=== PATIENT | female | born 2000 | race Caucasian/White ===

== ENCOUNTER 2022-03-05 01:10 | Outpatient (CLI) | payer BC, SELFPAY ==
[2022-03-05 12:13] LABS: Source Nasal/Nares
[2022-03-05 15:13] LABS: COVID-19 PCR Negative (Negative)
== END 2022-03-05 01:11 | disposition home or self-care (01) ==
LOC: LBO 01:11
PROVIDERS: PCP Nurse Practitioner Family; Visit Provider Otolaryngology
DX: Z20.822 Contact with and (suspected) exposure to COVID-19 (principal); Z01.818 Encounter for other preprocedural examination
CPT/HCPCS: 87635

== ENCOUNTER 2022-03-08 07:26 | Day surgery (SDC) | payer BC, SELFPAY ==
[2022-03-08] VITALS (10 sets, daily range): BP systolic 106–198; BP diastolic 59–102; PULSE 54–79; RESP 16–22; TEMP 36.2–36.7; O2SAT 97–100; BMI 25.6
[2022-03-08] MEDS: Lactated Ringers 1,000 ML 80 ML IV (08:15)
--- NOTE | 2022-03-08 08:40 | W.ANESPRE ---
General Info Date of Service Date Performed: 03/08/22 Height: 6 ft Weight: 85.7 kg Body Mass Index (BMI): 25.6 Surgical Procedure: Operation Date: 03/08/22 10:10 Proposed Procedure Side Surgeon p Tonsillectomy & Possible Adenoidectomy Brian Alvarado MD Meds Allergies and Home Medications Allergies Allergy/AdvReac Type Severity Reaction Status Date / Time shellfish derived Allergy facial Verified 03/08/22 07:38 swelling seasonal Allergy Intermediate nasal Uncoded 03/08/22 07:38 congestion water chestnusts Allergy Intermediate vomiting Uncoded 03/08/22 07:38 Home Medication Medication Instructions Recorded multivitamin 1 tab PO DAILY 03/05/22 acetaminophen 500 mg tablet 1,000 mg PO Q6H PRN 03/08/22 (Tylenol Extra Strength) ibuprofen 800 mg tablet 800 mg 03/08/22 Current Visit Medications: Current Medications Generic Name Dose Route Start Last Admin Trade Name Freq PRN Reason Stop Dose Admin Ringer's Solution 1,000 mls @ 80 mls/hr 03/08/22 06:00 03/08/22 08:15 IV 04/04/22 23:59 80 mls/hr INFUSION LAI Administration Cefazolin Sodium/Dextrose 2 gm in 50 mls @ 100 mls/hr 03/08/22 06:00 Ancef Duplex IVPB 04/04/22 23:59 PREOP LAI Tranexamic Acid 800 mg/ Sodium 58 mls @ 348 mls/hr 03/08/22 06:00 Chloride IVPB 03/08/22 18:00 PREOP LAI IV Miscellaneous Supplies 1 each 03/08/22 06:00 Iv Access IV 04/04/22 23:59 DIRECTED LAI Sodium Chloride 0 ml 03/08/22 06:00 Normal Saline Flush 10 Ml Syr IV 04/04/22 23:59 PRN PRN Sodium Chloride 0 ml 03/08/22 06:00 Normal Saline 10 Ml Vial IJ 04/04/22 23:59 DIRECTED PRN Sterile Water 0 ml 03/08/22 06:00 Water,Injection,Sterile 10 Ml Vial IJ 04/04/22 23:59 DIRECTED PRN PFSH Active Problems Active Problems: Problem Status Onset Code History of mononucleosis Z86.19 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 states she had this when she was a child, wears off when she was 15 years old, hasn't had one since she was 10 years Tonsillar abscess Medical History Comments:: Per pt. states, it takes a lot of anesthesia to Get us under. Surgical History Surgical History History of wisdom tooth extraction Tobacco Smoking/Tobacco Use Status: Never Alcohol Alcohol Intake: never Substance Use Substance use: Never Substance use type: does not use Vital Signs and Lab Results Vital Signs Most Recent Vital Signs in EMR: Most Recent Vital Signs Temp Pulse Resp BP Pulse Ox 36.3 C L 58 L 16 106/59 L 98 03/08/22 07:48 03/08/22 07:48 03/08/22 07:48 03/08/22 07:48 03/08/22 07:48 Point of Care Results Point of Care Results: POC- Test(urine) Negative 03/08/22 08:07 Lab Results Blood Type / Crossmatch: No Data to Display Complete Blood Count: No Data to Display Complete Metabolic Panel: No Data to Display Liver Function Panel: No Data to Display Coagulation Panel: No Data to Display Cardiac Panel: No Data to Display Arterial Blood Gas: No Data to Display Venous Blood Gas: No Data to Display Pancreas Panel: No Data to Display Thyroid Panel: No Data to Display Infectious Disease: Coronavirus (COVID-19)(PCR) Negative (Negative) 03/05/22 10:00 Coronavirus 2019 Source Nasal/Nares 03/05/22 10:00 Blood Cultures: No Data to Display Toxicology Panel: No Data to Display Panel: No Data to Display Anesthesia Assessment and Plan Anesthesia History Personal History: No History of Anesthesia Complications Family History: Other Exercise Tolerance Exercise Tolerance: Metabolic Equivalents>4 Pertinent Negatives Pertinent Negatives: No Symptoms of GERD, No Major Cardiovascular Symptoms or Complaints, No Major Pulmonary Symptoms or Complaints and No History of CVA/TIA Cardiac & Pulmonary Exam Cardiac Exam: Normal S1/S2 Heart Sounds Pulmonary Exam: Clear Bilateral Breath Sounds Implantable Cardiac Device Does patient have a Pacemaker or an ICD?: No Airway Exam Known Difficult Airway: No Mallampati Class: 1 Mouth Opening: Normal (> 3cm) Thyromental Distance: Greater than 3 cm Neck Range of Motion: Full ROM Neck Circumference: Normal Teeth Condition: Normal Dentition ASA Classification ASA Score: ASA 2 Emergency Case?: No NPO Status NPO Status: NPO Clears >2 hours, Solids >8 hours Status Status: Other Anesthesia Plan Resuscitation Status: Full Code Anesthesia Technique: General Anesthesia Airway Planned: Endotracheal Tube Monitors Used: Standard Monitors
[2022-03-08] MEDS: ceFAZolin 2 GM/50 ML BAG IVPB (09:55)
[2022-03-08] MEDS: Bupivacaine 0.5% Pres-Free W/EPI 10 ML VIAL (10:14)
--- NOTE | 2022-03-08 10:18 | TONSIL_PTH ---
PATIENT: Tracee Villalobos LOC: [facility] U#:[id number] AGE/SX: 21/F ROOM: RE03/08/[address]: Brian Alvarado MD : [id number] BED: DIS: 03/08/2022 SPEC #: [id number] RECD: 03/08/22 12:21 STATUS: THELMA REQ #: [id number] JEREMIAH: 03/08/22 10:[address]: Brian Alvarado DEPT: Surgical Specimen RECD BY: Cristal Ornelas ENTERED: 03/08/22 12:21 SP TYPE: TONSIL OTHR DR: Ashley Kimball Tissues: 1 - TONSIL AGE 17 & OVER 2 - TONSIL AGE 17 & OVER Procedures: GROSS AND MICRO LEVEL 3 Comments: [id number]
--- NOTE | 2022-03-08 10:42 | W.PM.DSUDISC ---
Discharge Plan Disposition Patient Disposition: HOME Condition: Good Discharge Details Reason For Visit: tonsillectomy Attending Provider: Brian Alvarado Primary Care Provider: Ashley Kimball Home Meds and New Rx's Prescriptions: No Action multivitamin Tablet 1 tab PO DAILY acetaminophen [Tylenol Extra Strength] 500 mg Tablet 1,000 mg PO Q6H PRN ibuprofen 800 mg Tablet 800 mg Discharge Instructions Stand Alone Forms: ENT- T&A Instr. Jenny Referrals: Brian Alvarado MD [ [facility] STAFF PHYSICIAN] - (2 weeks. please call for appt prior to pt departure) Discharge Orders Discharge Orders: Discharge Order (Routine); Ordered 03/08/22 Ordered By: Brian Alvarado
--- NOTE | 2022-03-08 10:43 | W.PM.OP ---
Operative Note Operative Note DATE OF PROCEDURE: 03/08/22 PRE-OP DIAGNOSIS: Chronic tonsillitis, peritonsillar abscess POST-OP DIAGNOSIS: same SURGEON: Brian Alvarado ANESTHESIA TYPE: General LMA/ETT Refer to Anesthesia Record ESTIMATED BLOOD LOSS: 50 PATHOLOGY: other (Tonsils) COMPLICATIONS: None Indications: Patient with above problems. Options were explained to patient regarding further management. She elected to review the above procedure. Consent was filled out and signed prior to surgery. We discussed the risks of narcotics at length. H&P was reviewed. Findings: 3+ tonsils with significant scar tissue between the tonsil and the tonsillar fossa bilaterally. Atrophic adenoids, no evidence of infection, no obvious peritonsillar abscess. Palate intact to inspection and palpation. Procedure Description: After obtaining an adequate level of general endotracheal anesthesia the patient was positioned in a supine position and prepped and draped in appropriate fashion. 0.5% Marcaine with 1/100,000 epinephrine was injected in the submucosal space around the edges of the tonsils. Adenoids were examined revealing no significant residual adenoid and no evidence of infection. Each tonsil was then pulled medially and posteriorly and a 12 blade used to incise mucosa along the superior, anterior, and posterior edges of the tonsil. A Ady elevator was then used to disarticulate the tonsil from the tonsillar fossa superiorly and then a Do blade used to strip the tonsil free from the tonsillar fossa to the inferior pole at which point in time a tonsillar snare was used to amputate the tonsil from the tonsillar fossa. Electrocautery suction tip catheter set on 15 W coagulation was used to achieve relative hemostasis from the tonsillar beds bilaterally. Once been accomplished the Evaristo-Gabriel mouthgag was relaxed and reopened revealing no further bleeding. Valsalva was performed with no significant bleeding. A Evaristo Gabriel mouthgag was then relaxed and removed and the patient was then awakened and extubated by anesthesia and taken to recovery room in stable condition. I was present throughout the entire case.
[2022-03-08] MEDS: fentaNYL 100 MCG/2 ML VIAL IVP ×3 (10:58→11:24)
[2022-03-08] MEDS: LORazepam 2 MG/ML VIAL 0.5 MG IVP ×2 (11:10→11:22)
[2022-03-08] MEDS: HYDROcodone 5/Acetaminophen 325 TAB PO (12:54)
--- NOTE | 2022-03-08 13:45 | W.ANESPOSTOP ---
Postoperative Evaluation Date, Time and Location Date Performed: 03/08/22 Time Performed: 13:45 Patient Location: Day Surgery Unit Vital Signs Most Recent Imported Vital Signs: Most Recent Vital Signs Temp Pulse Resp BP Pulse Ox 36.2 C L 54 L 18 117/68 97 03/08/22 12:10 03/08/22 12:10 03/08/22 12:10 03/08/22 12:10 03/08/22 12:10 Pain Score Most Recent Pain Score: Most Recent Pain Score Pain Level 7 03/08/22 12:10 Assessment Mental Status: Awake (Alert & Oriented to Patient Baseline) Airway and Respiratory Function: Patent airway with normal (patient baseline) respiratory exam Cardiovascular Function: Hemodynamically Stable Hydration Status: Adequately Hydrated Nausea & Vomiting: No Nausea or Vomiting Pain: Pt. Denies Any Pain Peripheral Nerve Block: Other (Local by Dr. Alvarado)
== END 2022-03-08 13:54 | disposition home or self-care (01) ==
PROVIDERS: PCP Nurse Practitioner Family; Visit Provider Otolaryngology
PROC: (CPT 42826; principal; 2022-03-08 10:00)
DX: J36 Peritonsillar abscess (principal); F32.0 Major depressive disorder, single episode, mild; J35.1 Hypertrophy of tonsils
CPT/HCPCS: 42826; 81025; 88304; J0690; J1100; J2060; J2250; J2405; J3010